=== PATIENT | female | born 1950 | race African-American/Black ===

== ENCOUNTER 2019-04-14 15:18 | Emergency (ER) | payer MEDICARE, MEDICAID ==
[~2019-04-14] VITALS: Ht 170.2 cm; Wt 71.0 kg
[2019-04-14] MEDS ORDERED: IBUPROFEN 600MG TABLET PO ONE (17:45)
[2019-04-14 19:34] VITALS: BP 149/82
== END 2019-04-14 19:35 | disposition home or self-care (01) ==
LOC: ER 15:18
DX: M25.561 Pain in right knee (principal); R03.0 Elevated blood-pressure reading, without diagnosis of hypertension
CPT/HCPCS: 73562; 93971; 99284